=== PATIENT | male | born 1990 | race Two or more races ===

== ENCOUNTER 2018-03-11 02:10 | Emergency (ER) | payer MEDICAID ==
[~2018-03-11] VITALS: Ht 180.3 cm; Wt 110.0 kg
[2018-03-11 05:40] VITALS: BP 109/69
== END 2018-03-11 05:40 | disposition home or self-care (01) ==
LOC: ER 02:10
DX: S30.1XXA Contusion of abdominal wall, initial encounter (principal); V19.88XA Pedal cyclist (driver) (passenger) injured in other specified transport accidents, initial encounter; Y93.89 Activity, other specified; Y92.89 Other specified places as the place of occurrence of the external cause; Y99.8 Other external cause status
CPT/HCPCS: 74176; 99284

== ENCOUNTER 2019-10-09 12:42 | Emergency (ER) | payer MEDICAID ==
[~2019-10-09] VITALS: Ht 185.4 cm; Wt 100.0 kg
[2019-10-09] MEDS ORDERED: IBUPROFEN 400MG TABLET PO ONE (13:15)
[2019-10-09 14:00] LABS: BASOPHILS % 0.4 % (0.0-2.0); EOSINOPHILS % 0.4 % (0.0-5.0); HEMATOCRIT. 46.1 % (42.0-52.0); HEMOGLOBIN. 16.2 g/dL (14.0-18.0); LYMPHOCYTES % 28.9 % (20.0-50.0); MEAN CORPUSCULAR HEMOGLOBIN 29.5 pg (28.0-32.0); MEAN CORPUSCULAR VOLUME 84.1 fL (80.0-94.0); MEAN PLATELET VOLUME 8.9 fl (7.4-10.4); MONOCYTES % 9.2 % (2.0-8.0); NEUTROPHILS % 61.1 % (40.0-76.0); PLATELET 179 x1000/uL (130-400); RED BLOOD CELL COUNT 5.48 mill/uL (4.7-6.1); RED CELL DISTRIBUTION WIDTH 13.5 % (11.6-14.6)
[2019-10-09 14:06] LABS: CHLORIDE 106 mEq/L (98-107)
[2019-10-09 14:16] LABS: CREATINE KINASE 394 IU/L (39-308)
[2019-10-09] MEDS ORDERED: TRAMADOL 50MG TABLET PO ONE (14:30)
[2019-10-09 17:21] VITALS: BP 129/77
== END 2019-10-09 17:53 | disposition home or self-care (01) ==
LOC: ER 12:42
DX: I31.9 Disease of pericardium, unspecified (principal); R05 Cough
CPT/HCPCS: 36415; 71045; 80053; 82550; 84484; 85025; 93005; 99285

== ENCOUNTER 2021-02-26 22:03 | Emergency (ER) | payer MEDICAID ==
[~2021-02-26] VITALS: Ht 180.3 cm; Wt 105.0 kg
[2021-02-26] MEDS ORDERED: NAPR-681 PO (23:51)
[2021-02-26] MEDS ORDERED: DEXTL PO (23:51)
[2021-02-27 00:05] VITALS: BP 121/69
== END 2021-02-27 00:33 | disposition home or self-care (01) ==
LOC: ER 22:03
DX: J06.9 Acute upper respiratory infection, unspecified (principal); Z20.822 Contact with and (suspected) exposure to COVID-19
CPT/HCPCS: 87426; 99283